=== PATIENT | female | born 1935 | race Caucasian/White ===

== ENCOUNTER → 2019-05-14 17:34 | Outpatient (CLI) | payer OTHER, SELFPAY ==
--- NOTE | 2019-05-14 17:40 | DI.MRI.S_ITS ---
PROCEDURE: MR LUMBAR SPINE WO CON INDICATIONS: L4-5 spondylolisthesis with L4 radicular TECHNIQUE: Noncontrast sagittal T1 spin echo and T2 fast echo, sagittal STIR, axial T1 and T2 fast spin echo through the lumbar spine. In cases with scoliosis, additional coronal T2 fast spin echo may be performed. COMPARISON: [facility], [facility] LUMBAR SPINE WO CON, 01/25/2016, 13:44. FINDINGS: Image quality: Excellent. Alignment and Curvature: There is trace retrolisthesis of L2 on L3, L3 on L4, grade 1 Bone Marrow: Marrow is of normal overall signal. There is increased T1 and T2 signal at T11 most consistent with hemangioma. No acute vertebral body compression fractures. Spinal Cord: Conus medullaris terminates at the L1-L2 level. Visualized cord demonstrates normal signal and size. 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 Paraspinous Soft Tissues: No paravertebral masses. Bilateral renal cysts are noted. Discs: Moderate to severe desiccation is present throughout the lumbar spine most notable at L4-5. L1-L2: Minimal disc bulge without spinal stenosis or foraminal narrowing. Facet and ligamentum flavum hypertrophy are present. L2-L3: Mild disc bulge including a right lateral/foraminal component. There is moderate spinal stenosis. Mild to moderate left and moderate to severe right foraminal narrowing, progressive on the right is noted since prior exam. Facet and ligamentum flavum hypertrophy are present. L3-L4: Mild disc bulge with severe spinal stenosis and canal flattening. There is moderate to severe bilateral foraminal narrowing, unchanged. Significant facet and ligamentum flavum hypertrophy are present. L4-L5: Mild disc bulge with severe spinal stenosis and flattening of the canal. There is moderate bilateral foraminal narrowing, left greater than right with very minimal interval progression. Facet and ligamentum flavum hypertrophy are present. L5-S1: Mild disc bulge is with mild spinal stenosis. There is severe left and mild right foraminal narrowing with facet and ligamentum flavum hypertrophy. Very minimal interval progression is noted. IMPRESSION: 1. Multilevel degenerative changes with areas of interval progression as noted above. 2. Multilevel spinal stenosis, severe L3-4 and L4-5 secondary to disc bulge with contributing effect of facet/ligamentum flavum arthropathy. 3. Multilevel foraminal narrowing severe at L5-S1 secondary to facet arthropathy. Dictated by: Adri Herman M.D. on 05/17/2019 at 10:02 Approved by: Adri Herman M.D. on 05/17/2019 at 13:24
--- NOTE | 2019-05-14 17:40 | DI.RAD.S_ITS ---
PROCEDURE: XR LUMBAR SPINE MIN 4V INDICATIONS: L4-5 spondylolisthesis with L4 radicular TECHNIQUE: 5 views of the lumbar spine were acquired. COMPARISON: None. FINDINGS: Bones: 5 nonrib-bearing vertebrae are present. There is grade I L4 on L5 anterolisthesis. Degenerative changes including intervertebral disc space narrowing, endplate sclerosis, and facet sclerosis is present throughout the lower lumbar spine. No vertebral body compression fractures. No suspicious bony lesions. Soft tissues: Overlying bowel gas pattern is normal. No suspicious soft tissue calcifications. Oblique images: No pars defects. IMPRESSION: 1. Spondylolisthesis without spondylolysis. 2. Degenerative change. Dictated by: Leslie Camacho M.D. on 05/14/2019 at 19:50 Approved by: Leslie Camacho M.D. on 05/14/2019 at 19:51
== END ==
PROVIDERS: PCP Physician Assistant Medical; Visit Provider Physical Medicine & Rehabilitation
DX: M43.16 Spondylolisthesis, lumbar region (principal); M47.26 Other spondylosis with radiculopathy, lumbar region; M47.27 Other spondylosis with radiculopathy, lumbosacral region; M48.061 Spinal stenosis, lumbar region without neurogenic claudication; M48.07 Spinal stenosis, lumbosacral region; M51.16 Intervertebral disc disorders with radiculopathy, lumbar region; M51.17 Intervertebral disc disorders with radiculopathy, lumbosacral region
CPT/HCPCS: 72110; 72148

== ENCOUNTER 2019-05-25 13:51 | Outpatient (CLI) | payer OTHER, SELFPAY ==
[2019-05-25] VITALS (11 sets, daily range): BP systolic 130–201; BP diastolic 73–93; PULSE 53–72; RESP 16–20; TEMP 35.8; O2SAT 95–98
--- NOTE | 2019-05-25 13:54 | DI.RAD.S_ITS ---
PROCEDURE: PAIN L/S TRANSFORAMINAL INJECT INDICATIONS: RADICULOPATHY FINDINGS: Fluoroscopic spot filming was performed to verify placement of spinal needles at the L4-L5 level(s), as labeled on the films. Appropriate location(s) of the needle tip(s) was confirmed by injection of iodinated contrast. IMPRESSION: Fluoroscopy for pain management. Dictated by: Hafsa Savage M.D. on 05/25/2019 at 17:37 Approved by: Hafsa Savage M.D. on 05/25/2019 at 17:37
[2019-05-25] MEDS: fentaNYL 100 MCG/2 ML INJ 50 MCG IV (14:48)
[2019-05-25] MEDS: MIDAZOLAM 5 MG/5 ML VIAL IV (14:48)
[2019-05-25] MEDS: BETAMETHASONE 30 MG/5 ML MDV 12 MG INJ (14:54)
[2019-05-25] MEDS: BUPIVACAINE 0.25% (PF) VIAL 2 ML INJ (14:54)
[2019-05-25] MEDS: IOPAMIDOL 15 ML VIAL 3 ML INJ (14:54)
[2019-05-25] MEDS: DEXAMETHASONE 10 MG/ML VIAL 20 MG IV (14:59)
--- NOTE | 2019-05-25 15:02 | PC.NURSE ---
Pt tolerated procedure well. Able to get off table with 2 person minimal assist. Transferred pt via wheelchair to pre procedure room for continued monitoring with Irina PORTILLO.
--- NOTE | 2019-05-25 15:08 | P.PCN_ITS ---
Procedures Date/Time Date of procedure: 05/25/19 Time of procedure: 15:06 General Procedure description: PREOP DIAGNOSIS 1. FORMAINAL STENOSIS WITH LE SYMPTOMS POST OP DIAGNOSIS 1. FORMAINAL STENOSIS WITH LE SYMPTOMS PROCEDURES 1. FLUOROSCOPICALLY GUIDED CONTRAST CONTROLLED TRANSFORAMINAL EPIDURAL STEROID INJECTION - RIGHT L4/5 TFESI PHYSICIAN: Georges Lawrence DO INDICATIONS: Arianne is referred by ROB Zelaya for treatment of Foraminal Stenosis with Right LE Symptoms FINDINGS Foraminal Nerve Root Compression secondary to disc disease and facet hypertrophy DESCRIPTION OF PROCEDURE: Following review of allergy and review of potential side effects and complications, including, but not necessarily limited to, infection, allergic reaction, local tissue breakdown, stroke, temporary or permanent nerve injury, paralysis, and possible , the patient indicated that the patient understood and agreed to proceed. An informed consent document was signed by the patient, witnessed by a nurse, and placed in the patient's chart. Additionally, other treatment options including medications, modalities, and physical therapy were reviewed with the patient. After review of previous anaesthesic history and IV conscious sedation the patient was deemed safe to proceed with todays procedure with IV conscious sedation as ASA class II designation. Safety time-out was performed to confirm patient ID, procedure to be performed and site of procedure. IV sedation was accomplished with a combination of 2mg of Versed and 50mcg of Fentanyl was administered by the RN after DO order, titrated to patient comfort during the course of the procedure while the patient remained responsive to all verbal commands In the prone position following sterile prep and drape of the lumbar region, the Right L4/5 posterior neuroforamen was identified fluoroscopically. The skin was anesthetized via a 25-gauge 1.5-inch needle with 1% lidocaine solution. At this point, a 25-gauge 3.5-inch spinal needle was atraumatically introduced and advan alexandra under fluoroscopic guidance through the posterior Right L4/5 neuroforamen to approximately the anterior aspect of the canal. Depth was confirmed on lateral view. Following negative aspiration, injection of approximately 1.5 cc of Isovue 200 under live fluoroscopy in the AP view confirmed excellent flow along the nerve root, into the epidural space without vascular or intrathecal uptake observed Radiological data, including multiple fluoroscopic views of the lumbosacral spine, reveal a spinal needle at the right L4/5 posterior neuroforamen. Subsequent views show flow of contrast material flowing superiorly and inferiorly along the nerve root confirming epidural flow. Subsequently, a test dose of 1.5 cc of 1% lidocaine solution was administered and patient was observed for two minutes for signs or symptoms of complications, including abdominal pain, shortness of breath, bilateral upper or lower extremity weakness, nausea and vomiting, prior to steroid injection. At this point, a total of 3cc or 20mg of dexamethasone and 6mg of betamethasone was injected without incident. The procedure tolerated the procedure well without signs or symptoms of complications prior to transfer to the recovery area continued monitoring without incident.The patient was then transferred to the recovery area where they were observed for an appropriate time after the injection. The patient reported a VAS score of 7 prior to the procedure and a post- procedure VAS of 0. Total Fluoroscopy Time: 20.9 seconds Total Conscious Sedation Time: 24min POST OP INSTRUCTIONS The patient was provided a Pain Log to continue to record their response to the target-specific procedure prior to follow-up visit with their referring physician. Additionally, specific post-injection care instructions and a contact number to our office were provided if concerns arise regarding possible complications associated with the procedure are suspected. Georges Lawrence, Complications: none
--- NOTE | 2019-05-25 15:09 | PC.NURSE ---
Pt returns to treatment area @[id number] and is assisted to chair by staff
== END 2019-05-25 15:41 ==
LOC: RAD 13:52
PROVIDERS: PCP Physician Assistant Medical; Visit Provider Physical Medicine & Rehabilitation
DX: M48.061 Spinal stenosis, lumbar region without neurogenic claudication (principal); M51.16 Intervertebral disc disorders with radiculopathy, lumbar region
CPT/HCPCS: 64483; 99152; J0702; J1100; J2250; J3010

== ENCOUNTER → 2021-06-25 07:47 | Outpatient (CLI) | payer MEDICARE, SELFPAY ==
[2021-06-25 12:33] LABS: COVID19 -Nasal RAPID Negative (Negative)
== END ==
PROVIDERS: PCP Physician Assistant Medical; Visit Provider Physical Medicine & Rehabilitation
DX: Z20.822 Contact with and (suspected) exposure to COVID-19 (principal)
CPT/HCPCS: 87635; C9803

== ENCOUNTER 2021-06-26 14:52 | Outpatient (CLI) | payer MEDICARE, SELFPAY ==
[2021-06-26] VITALS (9 sets, daily range): BP systolic 115–191; BP diastolic 66–91; PULSE 60–74; RESP 12–21; TEMP 36.7; O2SAT 93–99
--- NOTE | 2021-06-26 14:54 | DI.RAD.S_ITS ---
PROCEDURE: PAIN L/S TRANSFORAMINAL INJECT INDICATIONS: SPONDYLOSIS COMPARISON: [facility], , PAIN L/S TRANSFORAMINAL INJECT, 05/25/2019, 14:53. FINDINGS: Fluoroscopic spot filming was performed to verify placement of spinal needle by the performing physician level(s), as labeled on the films. Appropriate location(s) of the needle tip(s) was confirmed by injection of iodinated contrast. IMPRESSION: Fluoroscopic images performed during procedure Dictated by: Julio Cesar Fuentes M.D. on 06/26/2021 at 16:46 Approved by: Julio Cesar Fuentes M.D. on 06/26/2021 at 16:47
[2021-06-26] MEDS: MIDAZOLAM 5 MG/5 ML VIAL IV (15:36)
[2021-06-26] MEDS: fentaNYL 100 MCG/2 ML INJ 50 MCG IV (15:36)
[2021-06-26] MEDS: BUPIVACAINE 0.25% (PF) VIAL 2 ML INJ (15:39)
[2021-06-26] MEDS: IOPAMIDOL 15 ML VIAL 3 ML INJ (15:39)
[2021-06-26] MEDS: DEXAMETHASONE 10 MG/ML VIAL 20 MG INJ (15:39)
[2021-06-26] MEDS: methylPREDNISolone acetate 80 MG/ML VIAL INJ (15:41)
--- NOTE | 2021-06-26 15:56 | P.PCN_ITS ---
Date/Time/Diagnoses Date of procedure: 06/26/21 Time of procedure: 15:56 Pre-procedure diagnosis: 1. FORAMINAL STENOSIS WITH LE SYMPTOMS Post-procedure diagnosis: same Procedure Notes Procedure: 1. FLUOROSCOPICALLY GUIDED CONTRAST CONTROLLED TRANSFORAMINAL EPIDURAL STEROID INJECTION - RIGHT L4/5 TFESI Indications: Arianne Barreto is referred by ROB Zelaya for treatment of Foraminal Stenosis with Right LE Symptoms Physician: Georges Lawrence Total Fluoroscopy time (seconds): 11 Total sedation minutes: 14 Complications: none Procedure in detail & Post-procedure care: FINDINGS Foraminal Nerve Root Compression secondary to disc disease and facet hypertrophy DESCRIPTION OF PROCEDURE Following review of allergy and review of potential side effects and complications, including, but not necessarily limited to, infection, allergic reaction, local tissue breakdown, stroke, temporary or permanent nerve injury, paralysis, and possible , the patient indicated that the patient understood and agreed to proceed. An informed consent document was signed by the patient, witnessed by a nurse, and placed in the patient's chart. Additionally, other treatment options including medications, modalities, and physical therapy were reviewed with the patient. After review of previous anaesthesic history and IV conscious sedation the patient was deemed safe to proceed with today?s procedure with IV conscious sedation as ASA class II designation. Safety time-out was performed to confirm patient ID, procedure to be performed and site of procedure. IV sedation was accomplished with a combination of 3mg of Versed and 50mcg of Fentanyl was administered by the RN after DO order, titrated to patient comfort during the course of the procedure while the patient remained responsive to all verbal commands In the prone position following sterile prep and drape of the lumbar region, the right L4/5 posterior neuroforamen was identified fluoroscopically. The skin was anesthetized via a 25-gauge 1.5-inch needle with 1% lidocaine solution. At this point, a 25-gauge 3.5-inch spinal needle was atraumatically introduced and advanced under fluoroscopic guidance through the posterior right L4/5 neuroforamen to approximately the anterior aspect of the canal. Depth was confirmed on lateral view. Following negative aspiration, injection of approximately 1.5cc of Isovue 200 under live fluoroscopy in the AP view confirmed excellent flow along the nerve root, into the epidural space without vascular or intrathecal uptake observed Radiological data, including multiple fluoroscopic views of the lumbosacral spine, reveal a spinal needle at the right L4/5 posterior neuroforamen. Subsequent views show flow of contrast material flowing superiorly and inferiorly along the nerve root confirming epidural flow. Subsequently, a test dose of 1.5 cc of 1% lidocaine solution was administered and patient was observed for two minutes for signs or symptoms of complications, including abdominal pain, shortness of breath, bilateral upper or lower extremity weakness, nausea and vomiting, prior to steroid injection. At this point, a total of 3cc or 20mg of dexamethasone and 6mg of betamethasone was injected without incident. The procedure tolerated the procedure well without signs or symptoms of complications prior to transfer to the recovery area continued monitoring without incident. The patient was then transferred to the recovery area where they were observed for an appropriate time after the injection. The patient reported a VAS score of 7 prior to the procedure and a post- procedure VAS of 0. POST OP INSTRUCTIONS The patient was provided a Pain Log to continue to record their response to the target-specific procedure prior to follow-up visit with their referring physician. Additionally, specific post-injection care instructions and a contact number to our office were provided if concerns arise regarding possible complications associated with the procedure are suspected.
--- NOTE | 2021-06-26 16:19 | PC.NURSE ---
Pt was very drowsy upon arrival. 2PA from [facility] to recliner. BLE still weak with R>L. Continue to hold with re-evaluation in 15 mins
--- NOTE | 2021-06-26 16:57 | PC.NURSE ---
Pt lives on [address]. Her complaint is centered around her R hip region and is causing her to not want to place a lot of weight on her R side. I brought up the idea of seeing her PCP and having a dexa scan done as she stated it had been at least 5 years maybe longer since she had one done. She was stable on transfer from [facility] to . Given her long drive, It was decided to release her to the care of her .
== END 2021-06-26 17:01 | disposition home or self-care (01) ==
LOC: RAD 14:54
PROVIDERS: PCP Physician Assistant Medical; Referring Provider Physical Medicine & Rehabilitation; Visit Provider Physical Medicine & Rehabilitation
DX: M48.061 Spinal stenosis, lumbar region without neurogenic claudication (principal); M51.16 Intervertebral disc disorders with radiculopathy, lumbar region
CPT/HCPCS: 64483; 99152; J0702; J1040; J1100; J2250; J3010

== ENCOUNTER → 2021-07-16 13:27 | Outpatient (CLI) | payer MEDICARE, SELFPAY ==
[2021-07-16 16:19] LABS: COVID19 -Nasal RAPID Negative (Negative)
== END ==
PROVIDERS: PCP Physician Assistant Medical; Referring Provider Nurse Practitioner Family; Visit Provider Nurse Practitioner Family
DX: Z01.812 Encounter for preprocedural laboratory examination (principal); Z20.822 Contact with and (suspected) exposure to COVID-19
CPT/HCPCS: 87635; C9803

== ENCOUNTER 2021-07-17 13:02 | Outpatient (CLI) | payer MEDICARE, SELFPAY ==
[2021-07-17] VITALS (8 sets, daily range): BP systolic 105–171; BP diastolic 61–87; PULSE 76–102; RESP 12–21; TEMP 36.6; O2SAT 92–100
--- NOTE | 2021-07-17 13:05 | DI.RAD.S_ITS ---
PROCEDURE: PAIN L INTERLAMINAR/CAUDAL INJ INDICATIONS: SPONDYLOSIS COMPARISON: [facility], , PAIN L/S TRANSFORAMINAL INJECT, 06/26/2021, 15:38. FINDINGS: Fluoroscopic spot filming was performed to verify placement of a spinal needle at the L4-L5 level, as labeled on the films. Appropriate location of the needle tip was confirmed by injection of iodinated contrast. IMPRESSION: Intraprocedural examination within normal limits. Dictated by: Jesse Carballo M.D. on 07/17/2021 at 14:06 Approved by: Jesse Carballo M.D. on 07/17/2021 at 14:07
[2021-07-17] MEDS: fentaNYL 100 MCG/2 ML INJ 50 MCG IV (13:53)
[2021-07-17] MEDS: MIDAZOLAM 5 MG/5 ML VIAL IV (13:53)
[2021-07-17] MEDS: IOPAMIDOL 15 ML VIAL 3 ML INJ (13:59)
[2021-07-17] MEDS: BUPIVACAINE 0.25% (PF) VIAL 2 ML INJ (13:59)
[2021-07-17] MEDS: methylPREDNISolone acetate 80 MG/ML VIAL INJ (13:59)
[2021-07-17] MEDS: DEXAMETHASONE 10 MG/ML VIAL 20 MG INJ (14:00)
--- NOTE | 2021-07-17 14:06 | P.PCN_ITS ---
Date/Time/Diagnoses Date of procedure: 07/17/21 Time of procedure: 14:06 Pre-procedure diagnosis: 1. HNP WITH RADICULAR FEATURES, 2. MULTILEVEL CENTRAL STENOSIS, Post-procedure diagnosis: same Procedure Notes Procedure: 1. FLUOROSCOPICALLY GUIDED CONTRAST CONTROLLED INTERLAMINAR EPIDURAL STEROID INJECTION -L4/5 Indications: Mary Lou is referred by ROB Zelaya for treatment of Bilateral Foraminal Stenosis R>L LE symptoms. Physician: Georges Lawrence Total Fluoroscopy time (seconds): 5 Total sedation minutes: 9 Complications: none Procedure in detail & Post-procedure care: FINDINGS Multilevel Central Spinal Stenosis with Nerve Root Compression DESCRIPTION OF PROCEDURE Fluoroscopically guided, contrast-controlled L4/5 translaminar epidural steroid injection. Following review of allergy and review of potential side effects and complications, including, but not necessarily limited to, infection, allergic reaction, local tissue breakdown, temporary as well as permanent nerve injury, paralysis, stroke and possible , the patient indicated that the patient understood and agreed to proceed. An informed consent document was signed by the patient, witnessed by a nurse, and placed in the patient's chart. Additionally, other treatment options including modalities, medications, and physical therapy were reviewed with the patient. After review of previous anaesthesic history and IV conscious sedation the patient was deemed safe to proceed with today?s procedure with IV conscious sedation as ASA class II designation. Safety time-out was performed to confirm patient ID, procedure to be performed and site of procedure. IV sedation was accomplished with a combination of 2mg of Versed and 50mcg of Fentanyl was administered by the RN after DO order, titrated to patient comfort during the course of the procedure while the patient remained responsive to all verbal commands In the prone position, following sterile prep and drape of the lumbar region, the L4/5 translaminar space was identified fluoroscopically. The skin was anesthetized via a 25-gauge, 1.5inch needle with 1% lidocaine solution. At this point, a 22-gauge short bevel spinal needle was atraumatically introduced and advanced under fluoroscopic guidance into the region of the L4/5 translaminar space. Depth was confirmed on lateral view. Radiological data, including multiple fluoroscopic views of the lumbar spine, reveal a spinal needle at the L4/5 translaminar space. Lateral views then show placement of the needle in the epidural space. Subsequent views show contrast material flowing superiorly and inferiorly in the epidural space. No vascular or intrathecal uptake is observed. At this point, using loss of resistance technique with saline and air, the epidural space was entered. This was confirmed following negative aspiration with injection of approximately 1.5cc of Isovue 200, showing excellent epidural flow without vascular or intrathecal uptake. At this point, 1cc of 1% lidocaine solution combined with 3cc or 20mg of dexamethasone and 80mg of depo medrol was injected without incident. The patient tolerated the procedure well without signs or symptoms of complica tions prior to transfer to the recovery area continued monitoring without incident. The patient was then transferred to the recovery area where they were observed for an appropriate period of time after the injection. The patient reported a VAS score of 6 prior to the procedure and a post- procedure VAS of 0. POST OP INSTRUCTIONS The patient was provided a Pain Log to continue to record their response to the target-specific procedure prior to follow-up visit with their referring physician. Additionally, specific post-injection care instructions and a contact number to our office were provided if concerns arise regarding possible complications associated with the procedure are suspected.
== END 2021-07-17 14:45 | disposition home or self-care (01) ==
PROVIDERS: PCP Physician Assistant Medical; Referring Provider Physical Medicine & Rehabilitation; Visit Provider Physical Medicine & Rehabilitation
DX: M51.16 Intervertebral disc disorders with radiculopathy, lumbar region (principal); M48.061 Spinal stenosis, lumbar region without neurogenic claudication
CPT/HCPCS: 62323; J1040; J1100; J2250; J3010

== ENCOUNTER → 2021-08-10 10:45 | Outpatient (CLI) | payer MEDICARE, SELFPAY ==
--- NOTE | 2021-08-10 10:46 | DI.RAD.S_ITS ---
PROCEDURE: XR HIP W PEL IF DONE PAKO MIN 4V INDICATIONS: Right hip pain TECHNIQUE: AP pelvis with lateral view(s) of the bilateral hip(s). COMPARISON: None. FINDINGS: Bones: No fractures or dislocations. Pelvic ring appears intact. No suspicious bony lesions. Moderate right and mild left hip joint space narrowing and periarticular osteophyte formation. Soft tissues: The visualized bowel gas pattern is normal. No suspicious soft tissue calcifications. IMPRESSION: Right greater than left hip osteoarthritis. No acute fracture. No osseous lesion. If symptoms and/or clinical suspicion for pathology persist, further assessment with repeat, or advanced imaging (e.g., CT, MRI, or bone scan) may be helpful for further assessment. Dictated by: Osiel Issa M.D. on 08/10/2021 at 11:50 Approved by: Osiel Issa M.D. on 08/10/2021 at 14:48
== END ==
PROVIDERS: PCP Physician Assistant Medical; Referring Provider Physical Medicine & Rehabilitation; Visit Provider Physical Medicine & Rehabilitation
DX: M16.0 Bilateral primary osteoarthritis of hip (principal); M54.17 Radiculopathy, lumbosacral region; M43.16 Spondylolisthesis, lumbar region; Z95.0 Presence of cardiac pacemaker
CPT/HCPCS: 73522; 99214

== ENCOUNTER → 2021-08-17 09:46 | Outpatient (CLI) | payer MEDICARE, SELFPAY ==
--- NOTE | 2021-08-17 09:58 | DI.CT.S_ITS ---
PROCEDURE: CT LUMBAR SPINE WO CON INDICATIONS: L4/5 slip pain TECHNIQUE: Noncontrast 3 mm thick sections acquired from the T12 level to the sacrum. Sagittal and coronal reformats were constructed. For radiation dose reduction, the following was used: automated exposure control. COMPARISON: [facility], MR, MR LUMBAR SPINE WO CON, 05/14/2019, 17:55. [facility] , MR, LUMBAR SPINE W/O CONTRAST, 01/23/2010, 12:40. [facility], CR, XR LUMBAR SPINE MIN 4V, 05/14/2019, 17:40. [facility], CR, XR HIP W PEL IF DONE PAKO 3TO4V, 08/10/2021, 10:46. [facility], CR, XR LUMBAR SPINE WITH OBLIQUES, 05/10/2021, 8:50. FINDINGS: Image quality: Excellent. Bones: No acute vertebral body compression fractures. No suspicious lytic or blastic bony lesions. Several vertebral body hemangiomas can be seen. No pars defects. Mild levoconvex scoliotic curvature is noted. Minimal retrolisthesis is seen at the L2-L3 level. Grade 1 L4-5 anterolisthesis can be seen, without associated pars defects. T11-T12: Mild loss of disc height is seen. Mild to moderate disc bulge can be seen. Moderate bilateral neural foraminal narrowing is seen. Moderate central canal narrowing is seen. T12-L1: The disc height is well preserved. Mild generalized disc bulge is seen. Mild facet joint hypertrophy is seen. No significant neural foraminal narrowing can be seen. Mild central canal narrowing is seen. L1-L2: The disc height is well preserved. Mild to moderate disc bulge is seen, which is slightly eccentric to the left side. Moderate bilateral neural foraminal narrowing is seen. Moderate central canal narrowing is seen. These degenerative changes appear progressed compared to 2019. L2-L3: Moderate loss of disc height is seen. Vacuum disc phenomenon is seen at this level. Partially bridging anterior osteophytes are seen. Posteriorly projected endplate osteophytes are seen. At least moderate facet hypertrophy can be seen. There is at least moderate bilateral neural foraminal narrowing seen. Moderate to severe central canal narrowing is seen, as on series 3, image 36. When comparison is made with the prior images, these findings are similar. L3-L4: There is mild loss of disc height seen. At least moderate disc bulge is seen at this level. Mild to moderate facet hypertrophy is seen. There is calcification at thickening seen of the ligamentum flavum. There is moderate to severe bilateral neural foraminal narrowing seen. There is severe central canal narrowing seen, as on series 3, image 45. When comparison is made with the prior images, these findings are similar. L4-L5: Moderate to severe loss of disc height can be seen. Vacuum disc phenomenon is seen at this level. At least moderate disc bulge is seen at this level. Prominent facet hypertrophy is seen. There is moderate to severe bilateral neural foraminal narrowing seen. Severe central canal narrowing can be seen at this level. No significant change from the prior. L5-S1: There is moderate loss of disc height seen. Vacuum disc phenomenon is seen at this level. Moderate disc bulge is seen, which is eccentric to the left side. Bridging endplate osteophytes can be seen on the left. Moderate facet joint hypertrophy is seen. There is moderate to severe bilateral neural foraminal narrowing seen. No significant central canal narrowing can be seen. Soft tissues: No retroperitoneal masses or hematomas. Visualized aorta is normal in caliber. Atherosclerotic calcification is noted. Pacer leads are seen on the city route driver image. A right kidney extrarenal pelvis can be seen. IMPRESSION: Multiple levels of prominent lumbar spine degenerative change are seen, which are worst at the L4-L5 level. Compared to 2019, there is mild progression seen at L1-L2. The degenerative changes otherwise appear similar. Incidental note is made of: Pacer leads Right kidney extrarenal pelvis Vertebral body hemangiomas Dictated by: Jesse Carballo M.D. on 08/17/2021 at 10:09 Approved by: Jesse Carballo M.D. on 08/17/2021 at 10:16
== END ==
PROVIDERS: PCP Physician Assistant Medical; Referring Provider Physical Medicine & Rehabilitation; Visit Provider Physical Medicine & Rehabilitation
DX: M47.26 Other spondylosis with radiculopathy, lumbar region (principal); M43.16 Spondylolisthesis, lumbar region; D18.09 Hemangioma of other sites; Z95.0 Presence of cardiac pacemaker
CPT/HCPCS: 72131

== ENCOUNTER → 2021-09-24 14:09 | Outpatient (CLI) | payer MEDICARE, SELFPAY ==
[2021-09-24 16:04] LABS: COVID19 -Nasal RAPID Negative (Negative)
== END ==
PROVIDERS: PCP Physician Assistant Medical; Referring Provider Physical Medicine & Rehabilitation; Visit Provider Physical Medicine & Rehabilitation
DX: Z20.822 Contact with and (suspected) exposure to COVID-19 (principal)
CPT/HCPCS: 87635; C9803

== ENCOUNTER 2021-09-25 15:34 | Outpatient (CLI) | payer MEDICARE, SELFPAY ==
[2021-09-25] VITALS (8 sets, daily range): BP systolic 115–174; BP diastolic 66–89; PULSE 59–64; RESP 9–22; TEMP 36.7; O2SAT 92–99
--- NOTE | 2021-09-25 15:35 | DI.RAD.S_ITS ---
PROCEDURE: PAIN L/S TRANSFORAMINAL INJECT INDICATIONS: SPONDYLOSIS COMPARISON: [facility], , PAIN L/S TRANSFORAMINAL INJECT, 06/26/2021, 15:38. FINDINGS: Fluoroscopic spot filming was performed to verify placement of spinal needles at the right L3-4 level(s), as labeled on the films. Appropriate location(s) of the needle tip(s) was confirmed by injection of iodinated contrast. IMPRESSION: Fluoro guidance was provided intraoperatively for right transforaminal epidural steroid injection at L3-4 level. Dictated by: Dedrick Soriano M.D. on 09/25/2021 at 17:08 Approved by: Dedrick Soriano M.D. on 09/25/2021 at 17:09
[2021-09-25] MEDS: MIDAZOLAM 5 MG/5 ML VIAL IV (16:18)
[2021-09-25] MEDS: fentaNYL 100 MCG/2 ML INJ 50 MCG IV (16:18)
[2021-09-25] MEDS: DEXAMETHASONE 10 MG/ML VIAL 20 MG INJ (16:23)
[2021-09-25] MEDS: IOPAMIDOL 15 ML VIAL 3 ML INJ (16:23)
[2021-09-25] MEDS: BUPIVACAINE 0.25% (PF) VIAL 2 ML INJ (16:23)
[2021-09-25] MEDS: BETAMETHASONE 30 MG/5 ML MDV 12 MG INJ (16:23)
--- NOTE | 2021-09-25 16:31 | PM.PROC.IR.1 ---
Date/Time/Diagnoses Date of procedure: 09/25/21 Time of procedure: 16:31 Pre-procedure diagnosis: 1. FORAMINAL STENOSIS WITH LE SYMPTOMS Post-procedure diagnosis: same Procedure Notes Procedure: 1. FLUOROSCOPICALLY GUIDED CONTRAST CONTROLLED TRANSFORAMINAL EPIDURAL STEROID INJECTION - RIGHT L3/4 TFESI Indications: Arianne Barreto is referred by ROB Zelaya for treatment of Foraminal Stenosis with right LE Symptoms Physician: Georges Lawrence Total Fluoroscopy time (seconds): 6 Total sedation minutes: 5 Complications: none Procedure in detail & Post-procedure care: FINDINGS Foraminal Nerve Root Compression secondary to disc disease and facet hypertrophy DESCRIPTION OF PROCEDURE Following review of allergy and review of potential side effects and complications, including, but not necessarily limited to, infection, allergic reaction, local tissue breakdown, stroke, temporary or permanent nerve injury, paralysis, and possible , the patient indicated that the patient understood and agreed to proceed. An informed consent document was signed by the patient, witnessed by a nurse, and placed in the patient's chart. Additionally, other treatment options including medications, modalities, and physical therapy were reviewed with the patient. After review of previous anaesthesic history and IV conscious sedation the patient was deemed safe to proceed with today?s procedure with IV conscious sedation as ASA class II designation. Safety time-out was performed to confirm patient ID, procedure to be performed and site of procedure. IV sedation was accomplished with a combination of 2mg of Versed and 50mcg of Fentanyl was administered by the RN after DO order, titrated to patient comfort during the course of the procedure while the patient remained responsive to all verbal commands In the prone position following sterile prep and drape of the lumbar region, the right L3/4 posterior neuroforamen was identified fluoroscopically. The skin was anesthetized via a 25-gauge 1.5-inch needle with 1% lidocaine solution. At this point, a 25-gauge 3.5-inch spinal needle was atraumatically introduced and advanced under fluoroscopic guidance through the posterior right L3/4 neuroforamen to approximately the anterior aspect of the canal. Depth was confirmed on lateral view. Following negative aspiration, injection of approximately 1.5 cc of Isovue 200 under live fluoroscopy in the AP view confirmed excellent flow along the nerve root, into the epidural space without vascular or intrathecal uptake observed Radiological data, including multiple fluoroscopic views of the lumbosacral spine, reveal a spinal needle at the right L3/4 posterior neuroforamen. Subsequent views show flow of contrast material flowing superiorly and inferiorly along the nerve root confirming epidural flow. Subsequently, a test dose of 1.5 cc of 1% lidocaine solution was administered and patient was observed for two minutes for signs or symptoms of complications, including abdominal pain, shortness of breath, bilateral upper or lower extremity weakness, nausea and vomiting, prior to steroid injection. At this point, a total of 4cc or 20mg of dexamethasone and 12mg of betamethasone was injected without incident. The patient tolerated the procedure well without signs or symptoms of complications prior to transfer to the recovery area continued monitoring without incident. The patient was then transferred to the recovery area where they were observed for an appropriate time after the injection. The patient reported a VAS score of 7 prior to the procedure and a post-procedure VAS of 0. POST OP INSTRUCTIONS The patient was provided a Pain Log to continue to record their response to the target-specific procedure prior to follow-up visit with their referring physician. Additionally, specific post-injection care instructions and a contact number to our office were provided if concerns arise regarding possible complications associated with the procedure are suspected.
== END 2021-09-25 17:10 | disposition home or self-care (01) ==
LOC: RAD 15:34
PROVIDERS: PCP Physician Assistant Medical; Referring Provider Physical Medicine & Rehabilitation; Visit Provider Physical Medicine & Rehabilitation
DX: M48.061 Spinal stenosis, lumbar region without neurogenic claudication (principal); M51.16 Intervertebral disc disorders with radiculopathy, lumbar region
CPT/HCPCS: 64483; J0702; J1100; J2250; J3010